=== PATIENT | female | born 1950 | race Caucasian/White ===

== ENCOUNTER 2018-05-14 21:35 | Emergency (ER) | payer OTHER ==
[2018-05-14 21:48] VITALS: TEMP 98.3; BMI 28.1
[2018-05-14] MEDS ORDERED: SOLU-MEDROL 125 MG IM STA (21:57)
[2018-05-14] MEDS ORDERED: ROCEPHIN IM STA (21:57)
[2018-05-14] MEDS ORDERED: DUONEB NEB STA (21:57)
[2018-05-14] MEDS ORDERED: LIDOCAINE HCL 1% SDV IM STA (21:57)
[2018-05-14] MEDS ORDERED: XOPENEX 1.25 MG NEB STA (21:57)
--- NOTE | 2018-05-14 22:26 | CT ---
EXAM: CT scan chest without contrast HISTORY: Cough congestion COMPARISON: None. FINDINGS: Contiguous axial images obtained the chest without contrast utilizing 5-mm collimation. S agittal and coronal reconstructions were imaged and reviewed. The thoracic inlet is unremarkable. T here is no evidence of mediastinal lymphadenopathy. The heart is normal in size without pericardial effusion.. Scarring atelectasis is seen within the and lingular segment. There is minimal dependent atelectasis at the right lung base.. Bone windows reveals no evidence of lytic or blastic lesions. IMPRESSION: Minimal scarring versus atelectasis inferior lingular segment. Dependent atelectasis right lung base. No consolidation or effusion
--- NOTE | 2018-05-14 22:31 | CT ---
EXAM: CT scan sinuses HISTORY: Congestion, cough COMPARISON: None. FINDINGS: It was axial images obtained through the paranasal sinuses without contrast utilizing 3-mm collimation sagittal and coronal reconstructions were imaged and reviewed.. Minimal mucoperiosteal thickening is seen within the left maxillary sinus. Mucosal thickening is seen anteriorly within the ethmoid sinuses. .. The right ostiomeatal complexe is patent. There is minimal narrowing of the le ft ostiomeatal complex. There is deviation of the nasal septum to the left of midline. IMPRESSION: Minimal chronic changes as described.
--- NOTE | 2018-05-14 23:19 | ED.PDOC ---
General ED Provider: Dr. RUBEN VAZQUEZ-ER Chief Complaint: Shortness of Air Stated Complaint: im coughing up thick yellow sputum and wheezing Time Seen by Physician: 21:40 Mode of Arrival: Walk-In Information Source: Patient Exam Limitations: No limitations Primary Care Provider: ИВАН ALFONSO Nursing and Triage Documentation Reviewed and Agree: Yes Does patient meet sepsis criteria?: No System Inflammatory Response Syndrome: Not Applicable Sepsis Protocol: For patient's 13 years and over: Temp is 96.8 and below OR 101 and greater Pulse >90 BPM Resp >20/minute Acutely Altered Mental Status Are patient's symptoms suggestive of a new infection, such as: -Pneumonia -Skin, Soft Tissue -Endocarditis -UTI -Bone, Joint Infection -Implantable Device -Acute Abdominal Infection -Wound Infection -Meningitis -Blood Stream Catheter Infection -Unknown Respiratory Complaint Exam - Respiratory Complaint/Exam Onset/Duration: several days Symptoms Are: Still present Initial Severity: Mild Current Severity: Moderate Location: Chest Character: Reports: Productive cough Aggravating: Reports: URI Alleviating: Reports: Bronchodilators Associated Signs and Symptoms: Reports: Dyspnea, Wheezing, URI. Denies: Rapid breathing Related Surgical History: Reports: None Tuberculosis Risk Factors: Reports: None Status Asthmaticus Risk Factors: Reports: None Home Oxygen Use: No Recent Stress Test: No Recent Echo/LV Function: No Current Antibiotic Use: Yes Current Asthma Medication Use: No Respiratory Distress: Mild Inadequate Respiratory Effort: No Dysphagia Present: No Stridor Present: No JVD Present: No Accessory Muscle Use: No Diminished Breath Sounds: No Sinus Tenderness: None Grunting Respirations: No Kussmaul Respirations: No Differential Diagnoses: COPD Exacerbation, Pneumonia, Bronchitis Non-Traumatic Chest Pain Syncope: EKG Performed Review of Systems - Review Of Systems Constitutional: Reports: No symptoms Eyes: Reports: No symptoms Ears, Nose, Mouth, Throat: Reports: No symptoms Respiratory: Reports: Cough, Short of air, Wheezing Cardiac: Reports: No symptoms GI: Reports: No symptoms : Reports: No symptoms Musculoskeletal: Reports: No symptoms Skin: Reports: No symptoms Neurological: Reports: No symptoms Endocrine: Reports: No symptoms Hematologic/Lymphatic: Reports: No symptoms All Other Systems: Reviewed and Negative Past Medical History - Past Medical History Previously Healthy: Yes Endocrine: Reports: None Cardiovascular: Reports: None Respiratory: Reports: None Hematological: Reports: None Gastrointestinal: Reports: None Genitourinary: Reports: None Neuro/Psych: Reports: None Musculoskeletal: Reports: None Cancer: Reports: None Last Menstrual Period: HAS HAD A HYSTERECTOMY - Surgical History General Surgical History: Reports: None - Family History Family History: Reports: None - Social History Smoking Status: Never smoker Hx Substance Use: No Alcohol Screening: None - Immunizations Tetanus Shot up to Date: Yes Physical Exam - Physical Exam Appearance: Well-appearing, No pain distress, Well-nourished Eyes: URIEL ENT: Ears normal, Nose normal, Oropharynx normal Neck: Supple Respiratory: Wheezes Cardiovascular: RRR, Pulses normal, No rub, No murmur GI/: Soft Musculoskeletal: Normal strength, ROM intact, No edema, No calf tenderness Skin: Warm Neurological: Sensation intact Psychiatric: Affect appropriate, Mood appropriate Interpretation - Radiology Interpretation Radiology Interpretation By: Radiologist Radiology Results: Negative Exam Interpreted: CT Scan - EKG Interpretation Time of EKG #1: 23:20 Rate: Normal Rhythm: Sinus Ectopy: None [place]: NL ST Segment: Normal Interpretation: NSR Re-Evaluation - Re-Evaluation Time of Re-Evaluation: 23:20 Status: Unchanged Vital Signs Stable: Yes Pain Level: 1 Appearance: NAD Lungs: Clear Skin: Warm and Dry Neuro: Alert and Oriented X3 CV: RRR Additional Comments: STILL EXP WHEEZING Critical Care Note - Critical Care Note Total Time (mins): 0 Course - Course Hematology/Chemistry: 05/14/18 22:14 05/14/18 22:14 Orders, Labs, Meds: Lab Review 05/14/18 05/14/18 05/14/18 21:55 22:14 22:14 WBC 15.87 H RBC 5.53 H Hgb 16.3 H Hct 49.6 H MCV 89.7 MCH 29.5 MCHC 32.9 RDW Coeff of Marcel 12.9 Plt Count 311 Immature Gran % (Auto) 0.4 Neut % (Auto) 60.6 Lymph % (Auto) 31.8 Jessamine % (Auto) 6.8 Eos % (Auto) 0.1 Baso % (Auto) 0.3 Immature Gran # (Auto) 0.1 Neut # (Auto) 9.6 H Lymph # (Auto) 5.1 H Jessamine # (Auto) 1.1 Eos # (Auto) 0.0 Baso # (Auto) 0.0 Puncture Site Rbrach O2 Saturation 97.0 ABG pH 7.427 ABG pCO2 34.1 L ABG pO2 90.0 ABG HCO3 22.5 ABG Total CO2 23 ABG Base Excess -2 Manpreet Test + FiO2 % 21.0 Sodium 140.6 Potassium 4.15 Chloride 104.5 Carbon Dioxide 25.2 Anion Gap 15.05 BUN 22.7 H Creatinine 0.75 Estimated GFR (MDRD) 76.00 BUN/Creatinine Ratio 30.26 Glucose 141.8 H Calcium 9.21 Total Bilirubin 0.65 AST 48.3 H ALT 36.7 H Alkaline Phosphatase 77.7 NT-Pro-B Natriuret Pep 139.000 H Total Protein 8.12 Albumin 4.70 Globulin 3.42 Albumin/Globulin Ratio 1.37 Influ A Molecular Assay Influ B Molecular Assay 05/14/18 22:40 WBC RBC Hgb Hct MCV MCH MCHC RDW Coeff of Marcel Plt Count Immature Gran % (Auto) Neut % (Auto) Lymph % (Auto) Jessamine % (Auto) Eos % (Auto) Baso % (Auto) Immature Gran # (Auto) Neut # (Auto) Lymph # (Auto) Jessamine # (Auto) Eos # (Auto) Baso # (Auto) Puncture Site O2 Saturation ABG pH ABG pCO2 ABG pO2 ABG HCO3 ABG Total CO2 ABG Base Excess Manpreet Test FiO2 % Sodium Potassium Chloride Carbon Dioxide Anion Gap BUN Creatinine Estimated GFR (MDRD) BUN/Creatinine Ratio Glucose Calcium Total Bilirubin AST ALT Alkaline Phosphatase NT-Pro-B Natriuret Pep Total Protein Albumin Globulin Albumin/Globulin Ratio Influ A Molecular Assay Negative by naat Influ B Molecular Assay Negative by naat Orders Category Date Time Status ABG DRAW REQUEST Stat CARDIO 05/14/18 21:56 Completed EKG-(ED ONLY) Stat CARDIO 05/14/18 21:55 Completed NEBULIZER TREATMENT Stat CARDIO 05/14/18 21:57 Completed IV [ED IV/MEDIPORT/POWERPORT] .ONCE EMERGENCY 05/14/18 23:16 Active ABG Stat LAB 05/14/18 21:55 Completed CBC W/ AUTO DIFF Stat LAB 05/14/18 22:14 Completed COMPREHENSIVE METABOLIC PANEL Stat LAB 05/14/18 22:14 Completed FLU A/B MOLECULAR Stat LAB 05/14/18 22:40 Completed NT-PROBNP Stat LAB 05/14/18 22:14 Completed 0.9 % Sodium Chloride [Saline Flush] MEDS 05/14/18 23:16 Ordered 1 syr IVF PRN PRN Ceftriaxone Sodium [Rocephin] MEDS 05/14/18 21:57 Discontinued 1 gm IM ONCE STA Ipratropium/Albuterol Neb [Duoneb] MEDS 05/14/18 21:57 Discontinued 1 vial NEB ONCE STA Levalbuterol HCl [Xopenex 1.25 mg] MEDS 05/14/18 21:57 Discontinued 1 vial NEB ONCE STA Lidocaine HCl/Pf [Lidocaine HCl 1% Sdv] MEDS 05/14/18 21:57 Discontinued 2.1 ml IM ONCE STA Methylprednisolone Sod Succ/Pf [Solu-Medrol 125 mg] MEDS 05/14/18 21:57 Discontinued 125 mg IM ONCE STA CT CHEST W/O CONTRAST Stat RADS 05/14/18 21:[address] SINUSES W/O CONTRAST Stat RADS 05/14/18 21:56 Completed Medications Discontinued Medications Generic Name Dose Route Start Last Admin Trade Name Freq PRN Reason Stop Dose Admin Albuterol/Ipratropium 1 vial 05/14/18 21:57 05/14/18 22:15 Duoneb NEB 05/14/18 21:58 1 vial ONCE STA Administration Ceftriaxone Sodium 1 gm 05/14/18 21:57 05/14/18 22:46 Rocephin IM 05/14/18 21:58 1 gm ONCE STA Administration Levalbuterol HCl 1 vial 05/14/18 21:57 05/14/18 22:30 Xopenex 1.25 Mg NEB 05/14/18 21:58 1 vial ONCE STA Administration Lidocaine HCl 2.1 ml 05/14/18 21:57 05/14/18 22:46 Lidocaine Hcl 1% Sdv IM 05/14/18 21:58 2.1 ml ONCE STA Administration Methylprednisolone Sodium Succinate 125 mg 05/14/18 21:57 05/14/18 22:46 Solu-Medrol 125 Mg IM 05/14/18 21:58 125 mg ONCE STA Administration Vital Signs: Temp Pulse Resp BP Pulse Ox 05/14/18 21:36 98.3 F 95 H 32 H 182/99 H 98 Departure - Departure Time of Disposition: 23:20 Disposition: TSF SHORT-TRM HOSP Discharge Problem: Bronchospasm with bronchitis, acute Instructions: Bronchospasm (ED) Condition: Good Pt referred to PMD for follow-up: Yes IPMP verified?: No Allergies/Adverse Reactions: Allergies No Known Drug Allergies Adverse Reaction (Verified 05/14/18 21:49) rivaroxaban [From Xarelto] Adverse Reaction (Verified 05/14/18 21:52) PT STATES "I BLEED OUT WHEN I TAKE IT, WILL NEVER TAKE AGAIN Home Medications: Ambulatory Orders Celecoxib [Celebrex] 100 mg PO BID PRN 05/14/18 Cholecalciferol (Vitamin D3) [Vitamin D3] 5,000 unit PO DAILY 05/14/18 Clarithromycin [Biaxin] 500 mg PO DAILY 05/14/18 Cyanocobalamin (Vitamin B-12) [Vitamin B-12] 1 mcg PO DAILY 05/14/18 Diclofenac Sodium [Voltaren 1% Gel] 1 gm TP DAILY PRN 05/14/18 Estradiol [Estrace] 1 gm VG DIRECTED 05/14/18 Gabapentin [Neurontin] 200 mg PO TID 05/14/18 Gabapentin [Neurontin] 500 mg PO BEDTIME 05/14/18 Hydrochlorothiazide 1 cap PO DAILY 05/14/18 Magnesium 250 mg PO DAILY 05/14/18 Pantoprazole Sodium 40 mg PO BID 05/14/18 Potassium Chloride [K-Tab ER] 20 meq PO DAILY 05/14/18 Pravastatin Sodium 80 mg PO DAILY 05/14/18 Tizanidine HCl 4 mg PO BEDTIME PRN 05/14/18 Tramadol HCl 50 mg PO Q6H PRN 05/14/18 Ubidecarenone [Co Q-10] 100 mg PO DAILY 05/14/18 Transfer Form Completed: Yes Disposition Discussed With: Patient, Family
[2018-05-14 23:40] VITALS: BP 143/87
== END 2018-05-14 23:57 | disposition short-term general hospital (02) ==
LOC: ED 21:35
DX: J21.9 Acute bronchiolitis, unspecified (principal); Z79.899 Other long term (current) drug therapy; R06.02 Shortness of breath; R00.0 Tachycardia, unspecified
CPT/HCPCS: 36415; 80053; 82803; 83880; 85025; 87502; 93005; 93010; 94640; 96372; 99285

== ENCOUNTER → 2018-05-14 | Outpatient (CLI) | payer OTHER ==
[2018-05-14 21:48] VITALS: BMI 28.1
== END ==
LOC: AMBL 23:54
PROVIDERS: ATTEND Family Medicine
DX: J20.9 Acute bronchitis, unspecified (principal); R00.0 Tachycardia, unspecified